=== PATIENT | female | born 2000 | race Caucasian/White ===

== ENCOUNTER → 2020-08-14 | Outpatient (CLI) | payer OTHER ==
--- NOTE | 2020-08-14 17:10 | RAD ---
First trimester ultrasound less than 14 weeks: Clinical indications: Uncertain gestational age. Evaluation for size and dates. Encounter for first trimester . Findings: Transabdominal study Number of fetuses: Single. Average crown-rump length: 5.1 cm which corresponds to an approximate gestational age of 11 weeks and 6 days +/- 7 days. EDC is February 27, 2021 Sac shape and amniotic fluid volume: Normal. heart rate: 171 beats per minute Placenta location: Appears to be developing anteriorly. Cervical length: Greater than 3 cm. Extrachorionic hemorrhage: 20 mm located superiorly. Uterus: No uterine fibroids are seen. Maternal ovaries: Not visualized due to overlying bowel gas and patient's maternal body habitus. Adnexa: no adnexal masses are seen. Free fluid: None. Impression: Single intrauterine gestation with approximate gestational age of 11 weeks and 6 days with an EDC of February 27, 2021. heart rate is 171 beats per minute. Electronically signed by: Juan Pepper MD (08/14/2020 5:07 PM) [id number]
== END | disposition home or self-care (01) ==
LOC: US 14:56
PROVIDERS: ATTEND Obstetrics & Gynecology
DX: Z34.91 Encounter for supervision of normal pregnancy, unspecified, first trimester (principal); Z3A.11 11 weeks gestation of pregnancy
CPT/HCPCS: 76801

== ENCOUNTER 2020-09-01 22:26 | Emergency (ER) | payer OTHER ==
[~2020-09-01] VITALS: Ht 170.2 cm; Wt 139.5 kg
--- NOTE | 2020-09-01 23:10 | PHYS DOC ---
Past History Past Medical History: Asthma Past Surgical History: No Surgical History Alcohol Use: None General Adult EDM: Chief Complaint: SYNCOPE HPI: HPI: Patient is a 20-year-old G1 at 14 weeks gestational age complaining of lightheadedness, "passing out", multiple episodes of nonbloody, nonbilious emesis today. States she has had her last episode of vomiting at 1700, since then has had "spit up". Says she is feels lightheaded when she tries to transition from sitting to standing. Has had occasional mild headaches, denies any vision changes. Denies any chest pain, shortness of breath, diarrhea. Has had decreased urination but denies dysuria. No vaginal bleeding or discharge. Has confirmed IUP on ultrasound about 5-6 weeks ago. Maternal family history of hyperemesis with . Denies any family history of sudden or cardiac disease. Review of Systems: Review of Systems: Constitutional: Denies fever or chills Eyes: Denies change in visual acuity HENT: Denies nasal congestion or sore throat Respiratory: Denies cough or shortness of breath Cardiovascular: Denies chest pain or edema or palpitations GI: Denies abdominal pain, has nausea and vomiting but denies bloody stools or diarrhea : Denies dysuria, but has had decreased urine Musculoskeletal: Denies back pain or joint pain Integument: Denies rash Neurologic: Denies headache, focal weakness or sensory changes Endocrine: Denies polyuria or polydipsia Lymphatic: Denies swollen glands Psychiatric: Denies depression or anxiety Heart Score: Risk Factors: Risk Factors: DM, Current or recent (<one month) smoker, HTN, HLP, family history of CAD, obesity. Risk Scores: Score 0 - 3: 2.5% MACE over next 6 weeks - Discharge Home Score 4 - 6: 20.3% MACE over next 6 weeks - Admit for Clinical Observation Score 7 - 10: 72.7% MACE over next 6 weeks - Early Invasive Strategies Physical Exam: PE: Constitutional: Well developed, well nourished, no acute distress, non-toxic appearance. [] HENT: Normocephalic, atraumatic, bilateral external ears normal, oropharynx moist, no oral exudates, nose normal. [] Eyes: PERRLA, EOMI, conjunctiva normal, no discharge. [] Neck: Normal range of motion, no tenderness, supple, no stridor. [] Cardiovascular: Sinus tachycardia, regular rhythm, no murmurs or gallops Lungs & Thorax: Bilateral breath sounds clear to auscultation [] Abdomen: Bowel sounds normal, soft, no tenderness, no masses, no pulsatile masses. [] Skin: Warm, dry, no erythema, no rash. [] Back: No tenderness, no CVA tenderness. [] Extremities: No tenderness, no cyanosis, no clubbing, ROM intact, no edema. [] Neurologic: Alert and oriented X 3, normal motor function, normal sensory function, no focal deficits noted. [] Psychologic: Affect normal, judgement normal, mood normal. [] Current Patient Data: Vital Signs: Vital Signs Date Time Temp Pulse Resp B/P (MAP) Pulse Ox O2 Delivery O2 Flow Rate FiO2 09/01/20 22:35 97.8 88 20 145/94 (111) 98 Room Air EKG: EKG: Sinus tachycardia, heart rate 101, normal intervals, no ectopy, no ST elevation or depression. Normal axis. [] Radiology/Procedures: Radiology/Procedures: [] Course & Med Decision Making: Course & Med Decision Making Pertinent Labs and Imaging studies reviewed. (See chart for details) Feeling better and tolerating p.o. after fluids. [] Dragon Disclaimer: Dragon Disclaimer: This electronic medical record was generated, in whole or in part, using a voice recognition dictation system. Departure Departure: Impression: Primary Impression: Nausea and vomiting during prior to 22 weeks gestation Disposition: 01 HI HOME SELF CARE/HOMELESS Condition: STABLE Referrals: PCP,ELLIOT (PCP) CINDY SILVA MD Patient Instructions: Nausea and Vomiting Scripts Ondansetron (ONDANSETRON ODT) 4 Mg Tab.rapdis 1 TAB PO PRN Q6-8HRS PRN for NAUSEA for 5 Days, #16 TAB Prov: JOSEF ANGUIANO MD 09/02/20 JOSEF ANGUIANO MD Sep 01, 2020 23:09
[2020-09-01] MEDS ORDERED: ONDANSETRON PF 4 MG/2 ML VIAL. IVP ONE (23:15)
[2020-09-01] MEDS ORDERED: IV NORMAL SALINE 1,000ML 1,000 ML IV ONE (23:15)
[2020-09-01 23:40] LABS: BASO % 0 % (0-3); EOS # 0.1 x10^3/uL (0.0-0.7); EOS % 2 % (0-3); HEMATOCRIT 42.3 % (36.0-47.0); HEMOGLOBIN 14.3 g/dL (12.0-15.5); LYMPH # 1.7 x10^3/uL (1.0-4.8); LYMPH % 23 % (24-48); MEAN CORPUSCULAR HEMOGLOBIN 30 pg (25-35); MEAN CORPUSCULAR HGB CONC 34 g/dL (31-37); MEAN CORPUSCULAR VOLUME 90 fL (79-100); MONO # 0.4 x10^3/uL (0.0-1.1); MONO % 6 % (0-9); NEUT # 5.2 x10^3uL (1.8-7.7); NEUT % 69 % (31-73); PLATELET COUNT 245 x10^3/uL (140-400); RED BLOOD COUNT 4.71 x10^6/uL (3.50-5.40); RED CELL DISTRIBUTION WIDTH 12.7 % (11.5-14.5); WHITE BLOOD COUNT 7.6 x10^3/uL (4.0-11.0)
[2020-09-01 23:44] LABS: CALCIUM 9.1 mg/dL (8.5-10.1); CREATININE 0.6 mg/dL (0.6-1.0); GFR 126.2; POTASSIUM 3.4 mmol/L (3.5-5.1)
[2020-09-01 23:45] LABS: CLARITY,URINE CLEAR; COLOR,URINE YELLOW; GLUCOSE,URINE NEG (NEG)
[2020-09-01 23:46] LABS: BACTERIA,URINE FEW /HPF (0-FEW); BILIRUBIN,URINE NEG (NEG); NITRITE,URINE NEG (NEG); RBC,URINE 0 /HPF (0-2); SQUAMOUS EPITHELIAL CELL,UR MOD /LPF; UROBILINOGEN,URINE 0.2 mg/dL (0.2 mg/dL); WBC,URINE OCC /HPF (0-4)
[2020-09-01 23:49] LABS: BARBITURATES NEG (NEG); BENZODIAZEPINES NEG (NEG); CANNABINOIDS NEG (NEG); COCAINE NEG (NEG); METHADONE NEG (NEG); OPIATES NEG (NEG); PHENCYCLIDINE NEG (NEG)
[2020-09-01 23:50] LABS: ALBUMIN 3.2 g/dL (3.4-5.0); ALBUMIN/GLOBULIN RATIO 0.8 (1.0-1.7); TOTAL BILIRUBIN 0.7 mg/dL (0.2-1.0); TOTAL PROTEIN 7.4 g/dL (6.4-8.2)
[2020-09-01 23:52] LABS: AMPHETAMINE/METHAMPHETAMINE NEG (NEG)
[2020-09-02] MEDS ORDERED: IV NORMAL SALINE 1,000ML 1,000 ML IV ONE (00:30)
[2020-09-02] MEDS ORDERED: ACETAMINOPHEN 500 MG TABLET PO ONE (00:30)
[2020-09-02] MEDS ORDERED: ONDA4TAB12 PO (00:42)
[2020-09-02 01:05] VITALS: BP 131/75
--- NOTE | 2020-09-02 03:05 | EKG ---
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
== END 2020-09-02 01:21 | disposition home or self-care (01) ==
LOC: ER 22:26
DX: O21.9 Vomiting of pregnancy, unspecified (principal); R42 Dizziness and giddiness; R51.9 Headache, unspecified; O99.512 Diseases of the respiratory system complicating pregnancy, second trimester; J45.909 Unspecified asthma, uncomplicated; Z3A.14 14 weeks gestation of pregnancy
CPT/HCPCS: 36415; 80053; 80307; 81001; 83690; 85025; 93005; 96361; 96374; 99285; J2405; J7030

== ENCOUNTER → 2020-09-25 | Outpatient (CLI) | payer OTHER ==
[2020-09-02 01:05] VITALS: BP 131/75
[~2020-09-25] MED LIST: ONDA4TAB12 PO
[2020-09-25 17:16] LABS: ALBUMIN 3.1 g/dL (3.4-5.0); ALBUMIN/GLOBULIN RATIO 0.7 (1.0-1.7); CALCIUM 9.4 mg/dL (8.5-10.1); CREATININE 0.8 mg/dL (0.6-1.0); GFR 90.5; POTASSIUM 3.5 mmol/L (3.5-5.1); TOTAL BILIRUBIN 0.6 mg/dL (0.2-1.0); TOTAL PROTEIN 7.3 g/dL (6.4-8.2); URIC ACID 4.6 mg/dL (2.6-6.0)
[2020-09-25 17:21] LABS: BASO % 0 % (0-3); EOS # 0.1 x10^3/uL (0.0-0.7); EOS % 2 % (0-3); HEMATOCRIT 40.7 % (36.0-47.0); HEMOGLOBIN 13.9 g/dL (12.0-15.5); LYMPH # 1.1 x10^3/uL (1.0-4.8); LYMPH % 16 % (24-48); MEAN CORPUSCULAR HEMOGLOBIN 31 pg (25-35); MEAN CORPUSCULAR HGB CONC 34 g/dL (31-37); MEAN CORPUSCULAR VOLUME 90 fL (79-100); MONO # 0.4 x10^3/uL (0.0-1.1); MONO % 6 % (0-9); NEUT % 76 % (31-73); PLATELET COUNT 215 x10^3/uL (140-400); RED BLOOD COUNT 4.53 x10^6/uL (3.50-5.40); RED CELL DISTRIBUTION WIDTH 13.3 % (11.5-14.5); WHITE BLOOD COUNT 6.6 x10^3/uL (4.0-11.0)
[2020-09-26 20:35] LABS: FREE T4 1.23 ng/dL (0.76-1.46); THYROID STIM HORMONE (TSH) 1.733 uIU/mL (0.358-3.740)
[2020-09-27 00:07] LABS: RUBELLA IGG ANTIBODY 1.56 index (Immune >0.99)
== END ==
LOC: LAB 15:56
PROVIDERS: ATTEND Obstetrics & Gynecology
DX: Z34.92 Encounter for supervision of normal pregnancy, unspecified, second trimester (principal); Z3A.17 17 weeks gestation of pregnancy
CPT/HCPCS: 80053; 81220; 81511; 83615; 84439; 84443; 84550; 85025; 86592; 86703; 86762; 86787; 86803; 86850; 86900; 86901; 87086; 87340

== ENCOUNTER → 2020-10-15 | Outpatient (CLI) | payer OTHER, BC ==
--- NOTE | 2020-10-15 17:25 | RAD ---
OB ULTRASOUND, > 14 WEEKS Clinical Indication: Encounter for related examination second trimester. Comparison: Obstetric ultrasound first trimester, August 14, 2020. Technique: Multiple grayscale images, color Doppler, and M-mode images of the uterus are obtained. Findings: Study is technically difficult due to patient body habitus. There is a single intrauterine gestation in cephalic presentation. The placenta is anterior in location without evidence of placenta previa. The amount of amniotic fluid appears appropriate. Amniotic fluid index is 7.4 cm. The cervix is not visualized. Biometrical data: BPD = 4.7 cm for 20 weeks 0 days. HC = 18.1 cm for 20 weeks 4 days. AC = 15.1 cm for 20 weeks 2 days. FL = 3.4 cm for 20 weeks 4 days. HC/AC ratio = 1.2. Overall, the estimated sonographic gestational age is 20 weeks and 3 days for an estimated date of delivery of March 01, 2021. The estimated date of delivery provided by the last menstrual period is March 01, 2021. Estimated weight is 352 +/- 52 grams. The estimated heart rate is 162 beats per minute. Four-chamber heart is not visualized. Bilateral upper and lower extremities are identified. Cord insertion is not well seen. stomach and bilateral kidneys are not seen. Urinary bladder is seen. Visualized spine is unremarkable. The sacrum is not well seen. The brain is not visualized. Given these limitations, no obvious anatomic abnormalities are identified. The maternal ovaries are not identified in the adnexa due to overlying bowel gas. Impression: 1. Single live intrauterine gestation with estimated sonographic gestational age of 20 weeks and 3 days. 2. Limited anatomic survey as above. Of structures seen, no abnormality is identified. Electronically signed by: Hair Webb MD (10/15/2020 5:22 PM) [facility]
== END ==
LOC: US 12:48
PROVIDERS: ATTEND Obstetrics & Gynecology
DX: Z34.92 Encounter for supervision of normal pregnancy, unspecified, second trimester (principal); Z3A.20 20 weeks gestation of pregnancy
CPT/HCPCS: 76805